=== PATIENT | female | born 1945 | race Two or more races ===

== ENCOUNTER 2023-01-31 05:07 | Inpatient (IN) | payer MEDICARE, OTHER ==
[~2023-01-31] VITALS: Ht 160 cm; Wt 63.5 kg
[2023-01-31] VITALS (12 sets, daily range): BP systolic 98–143; BP diastolic 55–82; TEMP 97.5–98.4; O2SAT 92–100
[2023-01-31] MEDS ORDERED: SEVOFLURANE 250 ML BOTTLE IH ONE (07:25)
[2023-01-31] MEDS ORDERED: FENTANYL PF 250MCG/5ML AMPUL ONE (07:26)
[2023-01-31] MEDS ORDERED: MIDAZOLAM HCL 2 MG/2ML VIAL ONE (07:26)
[2023-01-31] MEDS ORDERED: BUPIVACAINE 0.5 % PF 150 MG/30 ML VIAL ONE (07:26)
[2023-01-31] MEDS ORDERED: ANESTHESIA TRAY IN PYXIS 1 EA TRAY MC ONE (07:26)
[2023-01-31] MEDS ORDERED: TRANEXAMIC ACID 3,000 MG in SODIUM CHLORIDE IRRIG SOLUTION 70 ML IR ONE (08:30)
[2023-01-31] MEDS ORDERED: HYDROMORPHONE INJ 2 MG/ML DISP.SYRIN ONE (09:33)
[2023-01-31] MEDS ORDERED: diphenhydrAMINE HCL 25 MG CAPSULE PO PRN (10:30)
[2023-01-31] MEDS ORDERED: DOCUSATE SODIUM 100 MG CAPSULE PO PRN (10:30)
[2023-01-31] MEDS ORDERED: DOCUSATE SODIUM 250 MG CAPSULE PO PRN (10:30)
[2023-01-31] MEDS ORDERED: ALBUTEROL FS 2.5 MG/0.5 ML VIAL.NEB NEB PRN ×3 (10:30→12:48)
[2023-01-31] MEDS ORDERED: HYDROCODONE/APAP 5/325MG TABLET PO PRN ×2 (10:30)
[2023-01-31] MEDS ORDERED: ONDANSETRON HCL/PF 4 MG/2 ML VIAL IV PRN (10:30)
[2023-01-31] MEDS ORDERED: HYDROMORPHONE 1 MG/1 ML DISP.SYRIN IV PRN (10:30)
[2023-01-31] MEDS ORDERED: MAG HYDROX/AL HYDROX/SIMETH 30 ML UDC PO PRN (10:30)
[2023-01-31] MEDS ORDERED: BISACODYL SUPP (10 MG) 10 MG/SUPP.RECT SUPP.RECT RC PRN (10:30)
[2023-01-31] MEDS ORDERED: ZOLPIDEM TARTRATE 5 MG TABLET PO PRN (10:30)
[2023-01-31] MEDS ORDERED: SENNOSIDES 8.6 MG TABLET PO PRN ×2 (10:30)
[2023-01-31] MEDS ORDERED: CLONIDINE HCL 0.1 MG TABLET PO PRN (11:00)
[2023-01-31] MEDS ORDERED: AMLO5TAB4 PO (11:05)
[2023-01-31] MEDS ORDERED: GABA300C PO (11:05)
[2023-01-31] MEDS ORDERED: LORA10TA68 PO (11:05)
[2023-01-31] MEDS ORDERED: FLUT16SP16 BNOSTRILS (11:05)
[2023-01-31] MEDS ORDERED: FLUT1DIS5 IH (11:05)
[2023-01-31] MEDS ORDERED: PRAV20TA4 PO (11:05)
[2023-01-31] MEDS ORDERED: LEVO75TA PO (11:05)
[2023-01-31] MEDS ORDERED: CYAN10006 PO (11:05)
[2023-01-31] MEDS ORDERED: ALBU18HF2 IH (11:05)
[2023-01-31] MEDS: IV LR 1000 ML 1,000 ML IV PRN (11:28)
[2023-01-31] MEDS: LEVOTHYROXINE SODIUM 75 MCG TABLET PO SCH (12:44)
[2023-01-31] MEDS: HYDROMORPHONE 1 MG/1 ML DISP.SYRIN IM/IV/SC PRN (12:55)
[2023-01-31] MEDS ORDERED: ALBUTEROL FS 2.5 MG/3 ML VIAL.NEB NEB PRN (13:00)
[2023-01-31] MEDS: ALBUTEROL FS 2.5 MG/3 ML VIAL.NEB NEB SCH ×2 (13:30→20:26)
[2023-01-31] MEDS ORDERED: IPRATROPIUM NEB FS 0.5 MG/2.5 ML AMPUL.NEB NEB PRN (13:30)
[2023-01-31] MEDS: BUDESONIDE RESPULE INH 0.5 MG/2 ML AMPUL.NEB NEB SCH (15:00)
[2023-01-31] MEDS: ANCEF 1 GM/50 ML D5W IV SCH ×4 (16:18→23:40)
[2023-01-31] MEDS: DOCUSATE SODIUM 100 MG CAPSULE PO SCH (16:34)
[2023-01-31] MEDS ORDERED: FLUTICASONE/SALMETEROL 1 DISK IH SCH (17:00)
[2023-01-31] MEDS: AMLODIPINE BESYLATE 5 MG TABLET PO SCH (20:00)
[2023-01-31] MEDS: FAMOTIDINE (20 MG) 20 MG TABLET PO SCH (21:06)
[2023-01-31] MEDS: GABAPENTIN 300 MG CAPSULE PO SCH (21:33)
[2023-01-31] MEDS: oxyCODONE IR immediate release 5 MG PO PRN (22:07)
[2023-02-01] VITALS (9 sets, daily range): BP systolic 131; BP diastolic 65; TEMP 98.8; O2SAT 91–97
[2023-02-01] MEDS: ALBUTEROL FS 2.5 MG/3 ML VIAL.NEB NEB SCH ×4 (00:59→20:32)
[2023-02-01] MEDS: IV LR 1000 ML 1,000 ML IV PRN (01:56)
[2023-02-01] MEDS: oxyCODONE IR immediate release 5 MG PO PRN (05:32)
[2023-02-01 06:49] LABS: HEMATOCRIT 34 % (33-45); HEMOGLOBIN 11.5 g/dL (11.5-14.8); LYMPHOCYTES # (AUTO) 0.8 K/uL (0.8-4.8); LYMPHOCYTES % (AUTO) 5.1 % (20.0-44.0); MEAN CORPUSCULAR HEMOGLOBIN 30 PG (26.0-33.0); MEAN CORPUSCULAR HGB CONC 34 g/dl (31.0-36.0); MEAN CORPUSCULAR VOLUME 89 fL (82-100); MONOCYTES # (AUTO) 1.7 K/uL (0.1-1.30); MONOCYTES % (AUTO) 11.2 % (2.0-12.0); NEUTROPHILS # (AUTO) 12.5 K/uL (1.8-8.9); NEUTROPHILS % (AUTO) 83.7 % (43.0-81.0); PLATELET COUNT (AUTO) 184 K/uL (150-450); RED BLOOD CELL COUNT(AUTO) 3.85 MIL/uL (4.0-5.2); RED CELL DISTRIBUTION WIDTH 13.5 % (11.5-15.0); WHITE BLOOD COUNT (AUTO) 14.9 K/uL (4.3-11.0)
[2023-02-01] MEDS ORDERED: LEVOTHYROXINE SODIUM 75 MCG TABLET PO SCH (07:30)
[2023-02-01 07:31] LABS: CALCIUM, SERUM 7.9 mg/dL (8.5-10.1); CARBON DIOXIDE 24 mmol/L (21-32); CHLORIDE 106 mmol/L (98-107); CREATININE 0.8 mg/dL (0.6-1.3); GLUCOSE 127 mg/dL (74-106); MAGNESIUM 1.8 mg/dL (1.8-2.4); PHOSPHORUS 7.3 mg/dL (2.5-4.9); POTASSIUM 3.9 mmol/L (3.5-5.1); SODIUM SERUM 140 mmol/L (136-145); UREA NITROGEN, BLOOD 20 mg/dL (7-18)
[2023-02-01] MEDS: BUDESONIDE RESPULE INH 0.5 MG/2 ML AMPUL.NEB NEB SCH ×2 (07:48→14:38)
[2023-02-01] MEDS: FAMOTIDINE (20 MG) 20 MG TABLET PO SCH ×2 (08:11→21:31)
[2023-02-01] MEDS: ATORVASTATIN 10 MG TABLET PO SCH (08:11)
[2023-02-01] MEDS: DOCUSATE SODIUM 100 MG CAPSULE PO SCH ×2 (08:12→18:46)
[2023-02-01] MEDS: LORATADINE 10 MG TABLET PO SCH (08:12)
[2023-02-01] MEDS: ASPIRIN 325 MG TABLET PO SCH (08:12)
[2023-02-01] MEDS: LEVOTHYROXINE SODIUM 75 MCG TABLET PO SCH (08:12)
[2023-02-01] MEDS: FLUTICASONE PROPIONATE 16 GM BOTTLE NS SCH (08:16)
[2023-02-01] MEDS ORDERED: ASPIRIN 325 MG TABLET PO SCH (09:00)
[2023-02-01] MEDS ORDERED: AMLODIPINE BESYLATE 5 MG TABLET PO SCH (09:00)
[2023-02-01] MEDS: HYDROMORPHONE 1 MG/1 ML DISP.SYRIN IM/IV/SC PRN ×2 (14:14→21:32)
[2023-02-01] MEDS: AMLODIPINE BESYLATE 5 MG TABLET PO SCH (18:52)
[2023-02-01] MEDS ORDERED: ALBUTEROL FS 2.5 MG/3 ML VIAL.NEB NEB PRN (19:30)
[2023-02-01] MEDS: GABAPENTIN 300 MG CAPSULE PO SCH (21:31)
[2023-02-02] VITALS (11 sets, daily range): BP systolic 124–139; BP diastolic 59–71; TEMP 98.2–98.8; O2SAT 92–97
[2023-02-02] MEDS: ALBUTEROL FS 2.5 MG/3 ML VIAL.NEB NEB SCH ×4 (02:26→20:44)
[2023-02-02] MEDS: IV LR 1000 ML 1,000 ML IV PRN (05:22)
[2023-02-02 06:19] LABS: BASOPHILS % (AUTO) 0.2 % (0.0-2.0); EOSINOPHILS # (AUTO) 0.2 K/uL (0.0-0.7); EOSINOPHILS % (AUTO) 1.3 % (0.0-6.0); HEMATOCRIT 32 % (33-45); HEMOGLOBIN 10.9 g/dL (11.5-14.8); LYMPHOCYTES # (AUTO) 1.1 K/uL (0.8-4.8); LYMPHOCYTES % (AUTO) 9.2 % (20.0-44.0); MEAN CORPUSCULAR HEMOGLOBIN 30 PG (26.0-33.0); MEAN CORPUSCULAR HGB CONC 34 g/dl (31.0-36.0); MEAN CORPUSCULAR VOLUME 89 fL (82-100); MONOCYTES # (AUTO) 1.7 K/uL (0.1-1.30); MONOCYTES % (AUTO) 13.5 % (2.0-12.0); NEUTROPHILS # (AUTO) 9.3 K/uL (1.8-8.9); NEUTROPHILS % (AUTO) 75.8 % (43.0-81.0); PLATELET COUNT (AUTO) 157 K/uL (150-450); RED BLOOD CELL COUNT(AUTO) 3.64 MIL/uL (4.0-5.2); RED CELL DISTRIBUTION WIDTH 13.6 % (11.5-15.0); WHITE BLOOD COUNT (AUTO) 12.3 K/uL (4.3-11.0)
[2023-02-02 06:49] LABS: CALCIUM, SERUM 8.4 mg/dL (8.5-10.1); CARBON DIOXIDE 29 mmol/L (21-32); CHLORIDE 108 mmol/L (98-107); CREATININE 0.7 mg/dL (0.6-1.3); GLUCOSE 115 mg/dL (74-106); PHOSPHORUS 2.1 mg/dL (2.5-4.9); POTASSIUM 3.7 mmol/L (3.5-5.1); SODIUM SERUM 141 mmol/L (136-145); UREA NITROGEN, BLOOD 15 mg/dL (7-18)
[2023-02-02] MEDS: BUDESONIDE RESPULE INH 0.5 MG/2 ML AMPUL.NEB NEB SCH ×2 (07:54→14:30)
[2023-02-02] MEDS: LEVOTHYROXINE SODIUM 75 MCG TABLET PO SCH (08:16)
[2023-02-02] MEDS: ASPIRIN 325 MG TABLET PO SCH (08:16)
[2023-02-02] MEDS: DOCUSATE SODIUM 100 MG CAPSULE PO SCH ×2 (08:16→17:02)
[2023-02-02] MEDS: FAMOTIDINE (20 MG) 20 MG TABLET PO SCH ×2 (08:16→21:23)
[2023-02-02] MEDS: LORATADINE 10 MG TABLET PO SCH (08:16)
[2023-02-02] MEDS: ATORVASTATIN 10 MG TABLET PO SCH (08:16)
[2023-02-02] MEDS: FLUTICASONE PROPIONATE 16 GM BOTTLE NS SCH (08:21)
[2023-02-02] MEDS: oxyCODONE IR immediate release 5 MG PO PRN ×2 (08:34→17:05)
[2023-02-02] MEDS ORDERED: K PHOS NEUTRAL 250 MG TABLET PO ONE (15:30)
[2023-02-02] MEDS: AMLODIPINE BESYLATE 5 MG TABLET PO SCH (17:02)
[2023-02-02] MEDS: GABAPENTIN 300 MG CAPSULE PO SCH (21:23)
[2023-02-03] VITALS (11 sets, daily range): BP systolic 124–137; BP diastolic 58–74; TEMP 99.1–100.4; O2SAT 92–98
[2023-02-03] MEDS: ALBUTEROL FS 2.5 MG/3 ML VIAL.NEB NEB SCH ×4 (01:36→19:06)
[2023-02-03 07:16] LABS: BASOPHILS % (AUTO) 0.2 % (0.0-2.0); EOSINOPHILS # (AUTO) 0.3 K/uL (0.0-0.7); EOSINOPHILS % (AUTO) 2.3 % (0.0-6.0); HEMATOCRIT 34 % (33-45); HEMOGLOBIN 11.2 g/dL (11.5-14.8); LYMPHOCYTES # (AUTO) 1.1 K/uL (0.8-4.8); LYMPHOCYTES % (AUTO) 8.9 % (20.0-44.0); MEAN CORPUSCULAR HEMOGLOBIN 30 PG (26.0-33.0); MEAN CORPUSCULAR HGB CONC 33 g/dl (31.0-36.0); MEAN CORPUSCULAR VOLUME 89 fL (82-100); MONOCYTES # (AUTO) 1.3 K/uL (0.1-1.30); NEUTROPHILS # (AUTO) 9.4 K/uL (1.8-8.9); NEUTROPHILS % (AUTO) 77.6 % (43.0-81.0); PLATELET COUNT (AUTO) 167 K/uL (150-450); RED BLOOD CELL COUNT(AUTO) 3.77 MIL/uL (4.0-5.2); RED CELL DISTRIBUTION WIDTH 13.4 % (11.5-15.0); WHITE BLOOD COUNT (AUTO) 12.2 K/uL (4.3-11.0)
[2023-02-03 07:24] LABS: CALCIUM, SERUM 8.4 mg/dL (8.5-10.1); CREATININE 0.6 mg/dL (0.6-1.3); MAGNESIUM 1.9 mg/dL (1.8-2.4); PHOSPHORUS 2.9 mg/dL (2.5-4.9); POTASSIUM 3.7 mmol/L (3.5-5.1)
[2023-02-03] MEDS: LEVOTHYROXINE SODIUM 75 MCG TABLET PO SCH (07:53)
[2023-02-03] MEDS: BUDESONIDE RESPULE INH 0.5 MG/2 ML AMPUL.NEB NEB SCH ×2 (08:05→14:35)
[2023-02-03] MEDS: FLUTICASONE PROPIONATE 16 GM BOTTLE NS SCH (08:15)
[2023-02-03] MEDS: FAMOTIDINE (20 MG) 20 MG TABLET PO SCH ×2 (08:16→20:54)
[2023-02-03] MEDS: ATORVASTATIN 10 MG TABLET PO SCH (08:16)
[2023-02-03] MEDS: ASPIRIN 325 MG TABLET PO SCH (08:16)
[2023-02-03] MEDS: DOCUSATE SODIUM 100 MG CAPSULE PO SCH ×2 (08:16→17:13)
[2023-02-03] MEDS: LORATADINE 10 MG TABLET PO SCH (08:16)
[2023-02-03] MEDS: ACETAMINOPHEN 325 MG TABLET PO PRN ×2 (08:17→17:14)
[2023-02-03] MEDS: AMLODIPINE BESYLATE 5 MG TABLET PO SCH (17:14)
[2023-02-03] MEDS: GABAPENTIN 300 MG CAPSULE PO SCH (21:03)
[2023-02-04 01:46] VITALS: O2SAT 94
[2023-02-04] MEDS: ALBUTEROL FS 2.5 MG/3 ML VIAL.NEB NEB SCH ×3 (01:53→14:23)
[2023-02-04 02:01] VITALS: O2SAT 97; O2SAT 98
[2023-02-04] MEDS: IV LR 1000 ML 1,000 ML IV PRN (02:58)
[2023-02-04 06:18] LABS: BASOPHILS % (AUTO) 0.4 % (0.0-2.0); EOSINOPHILS # (AUTO) 0.6 K/uL (0.0-0.7); HEMATOCRIT 32 % (33-45); LYMPHOCYTES % (AUTO) 9.1 % (20.0-44.0); MEAN CORPUSCULAR HEMOGLOBIN 30 PG (26.0-33.0); MEAN CORPUSCULAR HGB CONC 34 g/dl (31.0-36.0); MEAN CORPUSCULAR VOLUME 89 fL (82-100); MONOCYTES # (AUTO) 1.3 K/uL (0.1-1.30); MONOCYTES % (AUTO) 12.2 % (2.0-12.0); NEUTROPHILS # (AUTO) 8.1 K/uL (1.8-8.9); NEUTROPHILS % (AUTO) 73.3 % (43.0-81.0); PLATELET COUNT (AUTO) 221 K/uL (150-450); RED BLOOD CELL COUNT(AUTO) 3.66 MIL/uL (4.0-5.2); RED CELL DISTRIBUTION WIDTH 13.2 % (11.5-15.0)
[2023-02-04 06:30] LABS: CALCIUM, SERUM 8.7 mg/dL (8.5-10.1); CARBON DIOXIDE 28 mmol/L (21-32); CHLORIDE 109 mmol/L (98-107); CREATININE 0.5 mg/dL (0.6-1.3); GLUCOSE 107 mg/dL (74-106); PHOSPHORUS 3.3 mg/dL (2.5-4.9); POTASSIUM 3.5 mmol/L (3.5-5.1); SODIUM SERUM 145 mmol/L (136-145); UREA NITROGEN, BLOOD 7 mg/dL (7-18)
[2023-02-04 07:00] VITALS: BP 130/69; TEMP 98.2; O2SAT 94
[2023-02-04] MEDS: LEVOTHYROXINE SODIUM 75 MCG TABLET PO SCH (07:46)
[2023-02-04] MEDS: BUDESONIDE RESPULE INH 0.5 MG/2 ML AMPUL.NEB NEB SCH ×2 (07:49→14:23)
[2023-02-04 07:51] VITALS: O2SAT 90
[2023-02-04 08:01] VITALS: O2SAT 97; O2SAT 98
[2023-02-04] MEDS: FAMOTIDINE (20 MG) 20 MG TABLET PO SCH (08:29)
[2023-02-04] MEDS: DOCUSATE SODIUM 100 MG CAPSULE PO SCH (08:29)
[2023-02-04] MEDS: LORATADINE 10 MG TABLET PO SCH (08:29)
[2023-02-04] MEDS: ASPIRIN 325 MG TABLET PO SCH (08:29)
[2023-02-04] MEDS: ATORVASTATIN 10 MG TABLET PO SCH (08:29)
[2023-02-04] MEDS: FLUTICASONE PROPIONATE 16 GM BOTTLE NS SCH (08:33)
[2023-02-04] MEDS ORDERED: ASPI-992 PO (13:37)
[2023-02-04] MEDS ORDERED: DOCU100C36 PO (13:37)
[2023-02-04 14:27] VITALS: O2SAT 89
== END 2023-02-04 15:50 | disposition home or self-care (01) | DRG 470 ==
LOC: DS 05:07 → MED 05:08
PROVIDERS: ADMIT Student in an Organized Health Care Education/Training Program; ATTEND Student in an Organized Health Care Education/Training Program
PROC: 0SR90JZ Replacement of Right Hip Joint with Synthetic Substitute, Open Approach (ICD-10-PCS; principal; 2023-01-31)
DX: M16.11 Unilateral primary osteoarthritis, right hip (principal); E03.9 Hypothyroidism, unspecified; E78.5 Hyperlipidemia, unspecified; I10 Essential (primary) hypertension; M81.0 Age-related osteoporosis without current pathological fracture; H11.001 Unspecified pterygium of right eye; J44.9 Chronic obstructive pulmonary disease, unspecified; Z90.710 Acquired absence of both cervix and uterus; Z83.3 Family history of diabetes mellitus
CPT/HCPCS: 36415; 80048-TC; 82962-TC; 83735-TC; 84100-TC; 85025-TC; 86850-TC; 87081-TC; 88305-TC; 88311-TC; 94799-TC; 97110-TC; 97112-TC; 97116-TC; 97530-TC; A4217; A4223; A6209; A6253; C1776; G0378; J0690; J1100; J1170; J2250; J2405; J2704; J3010; J3490; J7030; J7060; J7120